=== PATIENT | male | born 1960 | race Caucasian/White ===

== ENCOUNTER 2022-04-02 18:02 | Emergency (ER) | payer BC, SELFPAY ==
[2022-04-02] VITALS (10 sets, daily range): BP systolic 128–178; BP diastolic 60–125; PULSE 70–72; RESP 22; TEMP 36.8; O2SAT 87–100; BMI 28.7
[2022-04-02] MEDS: ASPIRIN 81 MG TAB.CHEW 324 MG PO (18:08)
[2022-04-02] MEDS: 0.9 % SODIUM CHLORIDE 1000 ml 1,000 ML IV (18:10)
[2022-04-02] MEDS: MORPHINE 4 MG/ML INJ IVP (18:10)
--- NOTE | 2022-04-02 18:10 | CRLHL7_ITS ---
For Patients: As a result of the Century Cures Act, medical imaging exams and procedure reports are released immediately into your electronic medical record. You may view this report before your referring provider. If you have questions, please contact your health care provider. INDICATION: CP. TECHNIQUE: Chest 1 view. COMPARISON: None. FINDINGS: Cardiovascular and mediastinum: Heart size and vasculature are normal in caliber and appearance. Mediastinum is within normal limits. Lungs and pleural space: Lungs are clear. No sign of infiltrate or mass. No sign of pleural effusion. No pneumothorax. Small calcified granuloma left upper lobe. Bones and soft tissues: No significant findings. IMPRESSION: Unremarkable chest. Dictated by: Ayden Velasquez MD @ 04/02/2022 18:45:19 (Electronically Signed)
[2022-04-02] MEDS: NITROGLYCERIN 0.4 MG TAB.SUBL SUBLINGUAL (18:11)
[2022-04-02] MEDS: HEPARIN 5,000 UNIT/0.5 ML INJ 4000 UNIT IVP (18:19)
[2022-04-02] MEDS: HEPARIN 25,000 UNIT/500 ML BAG 20 UNIT IV (18:22)
[2022-04-02] MEDS: MORPHINE 4 MG/ML INJ 2 MG IVP (18:28)
[2022-04-02] MEDS: CLOPIDOGREL 300 MG TABLET 600 MG PO (18:30)
[2022-04-02] MEDS: LORazepam 2 MG/ML inj 0.5 MG IVP (18:30)
[2022-04-02] MEDS: fentaNYL 100 MCG/2 ML inj 50 MCG IVP (18:30)
[2022-04-02] MEDS: NITROGLYCERIN/DEXTROSE 25,000 MCG/250 ML BOTTLE 6 MCG IVPB (18:30)
[2022-04-02 18:32] LABS: Troponin, Point-of-Care* 0.03 ng/ml (0.01-0.04)
[2022-04-02 18:35] LABS: Basophils Absolute Auto 0.03 K/uL (0.00-0.30); Basophils Percent Auto 0.4 % (0.0-3.0); Eosinophils Absolute Auto 0.04 K/uL (0.00-0.50); Eosinophils Percent Auto 0.5 % (0.0-7.0); Hematocrit 43.2 % (37.0-53.0); Hemoglobin* 14.7 gm/dL (13.5-17.5); Immature Granulocytes Abs Auto 0.01 K/uL (0.00-0.30); Immature Granulocytes Pct Auto 0.1 %; Lymphocytes Absolute Auto 2.13 K/uL (0.90-2.90); Lymphocytes Percent Auto 26.3 % (20-44); Mean Corpuscular HGB Conc 34 gm/dL (32-36); Mean Corpuscular Hemoglobin 32 pg (26-34); Mean Corpuscular Volume 95 fL (80-100); Monocytes Percent Auto 8.6 % (0.0-11.0); Neutrophils Percent Auto 64.1 % (42.0-72.0); Platelet Count* 199 K/uL (140-440); RDW Coefficient of Variation % 12.2 % (11.5-15.5); Red Blood Count 4.55 m/uL (4.30-5.90); White Blood Count* 8.11 K/uL (4.50-11.00)
[2022-04-02] MEDS: ONDANSETRON 2 MG/ML inj 4 MG IVP (18:42)
--- NOTE | 2022-04-02 18:45 | ED.NURSE ---
Report given to ANW RN by DAWN Whiteside. Pt transferred to EMS cot. Report given to EMS.
[2022-04-02 18:46] LABS: Slide Review Reflex No
[2022-04-02 19:01] LABS: Albumin* 4.3 g/dL (3.3-5.0); Chloride* 105 mmol/L (96-114); Potassium* 3.5 mmol/L (3.6-5.1); Sodium* 138 mmol/L (135-149)
[2022-04-02 19:03] LABS: Creatinine* 1.1 mg/dL (0.5-1.5); Est. Creatinine Clearance* 70.97; Estimated Glomerular Filt Rate 75 ml/min
[2022-04-02 19:04] LABS: Alanine Aminotransferase* 38 U/L (4-50); Alkaline Phosphatase* 60 U/L (40-150); Aspartate Amino Transferase* 35 U/L (12-35); Bilirubin Total* 0.8 mg/dL (0.1-1.5); Blood Urea Nitrogen* 20 mg/dL (7-30); Carbon Dioxide* 23 mmol/L (20-32); Total Protein* 6.9 g/dL (6.0-8.3)
[2022-04-02 19:05] LABS: Calcium* 8.3 mg/dL (8.4-10.6); Glucose* 118 mg/dL (60-115)
[2022-04-02 19:06] LABS: Prothrombin Time 36.7 Seconds
[2022-04-02 19:07] LABS: Partial Thromboplastin Time* 39 Seconds (23-33)
[2022-04-02 19:08] LABS: C Reactive Protein* < 0.5 mg/dL (0.5-1.0)
[2022-04-02 19:14] LABS: NT Pro B Type NatriureticPept* 34 pg/mL
[2022-04-02 19:21] LABS: SARS PCR* Negative SARS-CoV-2 (Negative)
--- NOTE | 2022-04-02 19:31 | ED.GENADULT ---
HPI - General Adult General Date Seen: 04/02/22 Chief complaint: Chest Pain Stated complaint: Chest pain Time Seen by Provider: 04/02/22 18:09 Source: patient and RN notes reviewed History of Present Illness HPI narrative: Patient is a 62-year-old male who arrives after developing severe left-sided chest pain with radiation into the left arm about 20 minutes prior to arrival. He says that he was eating carrots, the carrot seemed dry and did not seem to go down quite right. Shortly thereafter, he developed this pain. He has never had pain like this. Exam was somewhat limited as the patient complained of severe pain and was limited in his answers. He denied shortness of breath, denied nausea on arrival. Had not had any vomiting. Said he took a cholesterol medication, denied history of prior heart disease. Denied tobacco use. Denied allergies to medications. Related Data Home Medications Medication Instructions Recorded Confirmed cholesterol med 04/02/22 Allergies Allergy/AdvReac Type Severity Reaction Status Date / Time No Known Drug Allergies Allergy Verified 04/02/22 18:16 Review of Systems Status of ROS: Reports: unobtainable due to medical condition (Critical illness) [facility] Social History Smoking Status: Never smoker Do you use any of these nicotine containing products: None Second hand tobacco smoke exposure: No How often do you have a drink containing alcohol: never How often do you have six or more drinks on one occasion: Never AUDIT-C Alcohol total score: 0 service: No Exam Narrative: Exam Narrative: Vital signs as noted above. Initial O2 sat recorded in the 70s and 80s, but with a very poor waveform, I do not think that was an accurate reading. In general, an alert male, hand clenched over his chest, complaining of severe pain. Head: Normocephalic, atraumatic. Eyes: Pupils are equal reactive. Extraocular movements are full. Conjunctivae are normal. ENT: Mucous membranes are moist. Neck: Supple without lymphadenopathy. Heart: Regular rate and rhythm. No murmur or rub. Lungs: Clear bilaterally. No increased work of breathing, crackles or wheezes. Abdomen: Soft and nontender. Extremities: Well perfused. No edema. No calf tenderness. Pulses intact. Neurologic: Patient is alert and oriented to person and place. Speech is fluent. Face is symmetric. Moves all extremities equally. Affect: Normal. Skin: Warm and dry. Well perfused. Const: Vital Signs, click to edit/add: Vital Signs - 24 hr 04/02/22 18:03 04/02/22 18:11 04/02/22 18:11 Temperature 98.2 F Pulse Rate Pulse Rate [Pulse Oximeter] 72 Respiratory Rate 22 Blood Pressure Blood Pressure [Le ft Upper Arm] 178/125 H Pulse Oximetry 87 L 99 Oxygen Delivery Me thod Room Air Room Air Oxygen Flow Rate 04/02/22 18:05 04/02/22 18:35 04/02/22 18:36 Temperature 98.2 F Pulse Rate 70 70 Pulse Rate [Pulse Oximeter] 72 Respiratory Rate 22 Blood Pressure 135/100 H 144/60 H Blood Pressure [Le ft Upper Arm] 178/125 H Pulse Oximetry 99 100 100 Oxygen Delivery Me thod Room Air Oxygen Flow Rate 04/02/22 18:37 04/02/22 18:15 04/02/22 18:21 Temperature Pulse Rate 72 Pulse Rate [Pulse Oximeter] Respiratory Rate Blood Pressure Blood Pressure [Le ft Upper Arm] 147/114 H 128/95 H Pulse Oximetry 99 Oxygen Delivery Me thod Nasal Cannula Oxygen Flow Rate 2 04/02/22 18:30 04/02/22 19:16 Temperature 98.2 F Pulse Rate Pulse Rate [Pulse Oximeter] 72 Respiratory Rate 22 Blood Pressure Blood Pressure [Le ft Upper Arm] 135/100 H 135/100 H Pulse Oximetry Oxygen Delivery Me thod Oxygen Flow Rate Documenting provider has reviewed patient's vital signs: yes Course Course Hospital Course: On arrival, patient had an EKG which by my review showed an acute ST elevation ND, inferolateral with ST elevation in leads 2, 3, F, , V3 through V6 with reciprocal ST depression in V1, V2 and aVL. He was immediately treated as a STEMI. Two IVs were placed. He was initially on oxygen due to low O2 saturations, but once we documented that his O2 sats were in the high 90s, oxygen was discontinued. He received aspirin 324 mg, initially 1 sublingual nitroglycerin and 4 mg of morphine. Due to ongoing severe pain, nitroglycerin drip was started. He also received an additional 2 mg of morphine, 50 mcg of fentanyl as well as 0.5 mg of Ativan. After these medications he was significantly more comfortable. He was given bolus of heparin, 4000 mg as the max dose by weight. I gave him Plavix 600 mg p.o.. He had a portable chest x-ray which by my review was negative, mediastinum appeared within normal limits. Final radiology review was likewise negative. Shortly after receiving his EKG, I made an initial call to [facility]. Patient and his had indicated that they were patient's of [facility] so that was my 1st call. Unfortunately, this delayed his care as the [facility] call center initially tried to connect me with [facility]. Once connected there, the tower excavator operator indicated that they were unable to manage STEMIs. The call center made another attempt to contact Cardiology at [facility], apparently not believing that they could not manage a STEMI, the tower excavator operator said that they did not have ICU beds appropriate to manage a STEMI after the procedure. After that, the call center requested that I fax the EKG to [facility] and then await a phone call from them. In the meantime, the patient had indicated that he would prefer to go to [facility]. Therefore, given that I was in limbo with [facility], I called [facility] instead, was immediately transfered to the tower excavator operator, and within a couple of minutes had been directed to transfer the patient to [facility]. Transport had been called after seeing the patient's initial EKG, so they were already here and ready to go. He did develop some nausea and was given Zofran just prior to departure. Labs were pending at the time of his leaving the emergency department. His last blood pressure was 140/60. Pain was well controlled. Consultations Consultation #1: [facility] STEMI line Time: 16:15 Consultation #2: [facility] STEMI line Time: 16:30 Vital Signs Vital signs: Initial Vital Signs Temperature 98.2 F 04/02/22 18:03 Temperature Source Temporal Artery Scan 04/02/22 18:03 Pulse Rate 72 04/02/22 18:03 Respiratory Rate 22 04/02/22 18:03 Blood Pressure 178/125 H 04/02/22 18:03 Blood Pressure Mean 142 04/02/22 18:03 Blood Pressure Position Sitting 04/02/22 18:03 Pulse Oximetry 87 L 04/02/22 18:03 Oxygen Delivery Method 04/02/22 18:03 Vital Signs Temperature 98.2 F 04/02/22 18:03 Pulse Rate 72 04/02/22 18:03 Respiratory Rate 22 04/02/22 18:03 Blood Pressure 178/125 H 04/02/22 18:03 Pulse Oximetry 87 L 04/02/22 18:03 Oxygen Delivery Method 04/02/22 18:03 Temperature 98.2 F 04/02/22 19:16 Pulse Rate 72 04/02/22 19:16 Respiratory Rate 22 04/02/22 19:16 Blood Pressure 135/100 H 04/02/22 19:16 Pulse Oximetry 99 04/02/22 18:37 Oxygen Delivery Method 04/02/22 18:15 Oxygen Flow Rate 2 04/02/22 18:15 Medical Decision Making Lab Data Labs: Lab Results 04/02/22 04/02/22 04/02/22 Range/Units 18:12 18:13 18:15 WBC 8.11 (4.50-11.00) K/uL RBC 4.55 (4.30-5.90) m/uL Hgb 14.7 (13.5-17.5) gm/dL Hct 43.2 (37.0-53.0) % MCV 95 (80-100) fL MCH 32 (26-34) pg MCHC 34 (32-36) gm/dL RDW Coeff of Ioana 12.2 (11.5-15.5) % Plt Count 199 (140-440) K/uL Neut % (Auto) 64.1 (42.0-72.0) % Lymph % (Auto) 26.3 (20-44) % Barnwell % (Auto) 8.6 (0.0-11.0) % Eos % (Auto) 0.5 (0.0-7.0) % Baso % (Auto) 0.4 (0.0-3.0) % Neut # (Auto) 5.20 (1.7-7.0) K/uL Lymph # (Auto) 2.13 (0.90-2.90) K/uL Barnwell # (Auto) 0.70 (0.00-0.90) K/UL Eos # (Auto) 0.04 (0.00-0.50) K/uL Baso # (Auto) 0.03 (0.00-0.30) K/uL INR APTT Sodium (135-149) mmol/L Potassium (3.6-5.1) mmol/L Chloride (96-114) mmol/L Carbon Dioxide (20-32) mmol/L BUN (7-30) mg/dL Creatinine (0.5-1.5) mg/dL Estimated Creat Clear Estimated GFR ml/min Glucose (60-115) mg/dL Calcium (8.4-10.6) mg/dL Total Bilirubin (0.1-1.5) mg/dL Direct Bilirubin (0.0-0.5) mg/dL AST (12-35) U/L ALT (4-50) U/L Alkaline Phosphatase (40-150) U/L C-Reactive Protein (0.5-1.0) mg/dL NT-Pro-B Natriuret Pep pg/mL Total Protein (6.0-8.3) g/dL Albumin (3.3-5.0) g/dL SARS-CoV-2 (PCR) Negative SARS-CoV-2 (Negative) POC Troponin I 0.03 (0.01-0.04) ng/ml 04/02/22 04/02/22 04/02/22 Range/Units 18:15 18:15 18:15 WBC (4.50-11.00) K/uL RBC (4.30-5.90) m/uL Hgb (13.5-17.5) gm/dL Hct (37.0-53.0) % MCV (80-100) fL MCH (26-34) pg MCHC (32-36) gm/dL RDW Coeff of Ioana (11.5-15.5) % Plt Count (140-440) K/uL Neut % (Auto) (42.0-72.0) % Lymph % (Auto) (20-44) % Barnwell % (Auto) (0.0-11.0) % Eos % (Auto) (0.0-7.0) % Baso % (Auto) (0.0-3.0) % Neut # (Auto) (1.7-7.0) K/uL Lymph # (Auto) (0.90-2.90) K/uL Barnwell # (Auto) (0.00-0.90) K/UL Eos # (Auto) (0.00-0.50) K/uL Baso # (Auto) (0.00-0.30) K/uL INR Cancelled APTT Cancelled Sodium 138 (135-149) mmol/L Potassium 3.5 L (3.6-5.1) mmol/L Chloride 105 (96-114) mmol/L Carbon Dioxide 23 (20-32) mmol/L BUN 20 (7-30) mg/dL Creatinine 1.1 (0.5-1.5) mg/dL Estimated Creat Clear 70.97 Estimated GFR 75 ml/min Glucose 118 H (60-115) mg/dL Calcium 8.3 L (8.4-10.6) mg/dL Total Bilirubin 0.8 (0.1-1.5) mg/dL Direct Bilirubin 0.0 (0.0-0.5) mg/dL AST 35 (12-35) U/L ALT 38 (4-50) U/L Alkaline Phosphatase 60 (40-150) U/L C-Reactive Protein < 0.5 L (0.5-1.0) mg/dL NT-Pro-B Natriuret Pep 34 pg/mL Total Protein 6.9 (6.0-8.3) g/dL Albumin 4.3 (3.3-5.0) g/dL SARS-CoV-2 (PCR) (Negative) POC Troponin I (0.01-0.04) ng/ml 04/02/22 Range/Units 18:23 WBC (4.50-11.00) K/uL RBC (4.30-5.90) m/uL Hgb (13.5-17.5) gm/dL Hct (37.0-53.0) % MCV (80-100) fL MCH (26-34) pg MCHC (32-36) gm/dL RDW Coeff of Ioana (11.5-15.5) % Plt Count (140-440) K/uL Neut % (Auto) (42.0-72.0) % Lymph % (Auto) (20-44) % Barnwell % (Auto) (0.0-11.0) % Eos % (Auto) (0.0-7.0) % Baso % (Auto) (0.0-3.0) % Neut # (Auto) (1.7-7.0) K/uL Lymph # (Auto) (0.90-2.90) K/uL Barnwell # (Auto) (0.00-0.90) K/UL Eos # (Auto) (0.00-0.50) K/uL Baso # (Auto) (0.00-0.30) K/uL INR 3.50 H APTT 39 H Sodium (135-149) mmol/L Potassium (3.6-5.1) mmol/L Chloride (96-114) mmol/L Carbon Dioxide (20-32) mmol/L BUN (7-30) mg/dL Creatinine (0.5-1.5) mg/dL Estimated Creat Clear Estimated GFR ml/min Glucose (60-115) mg/dL Calcium (8.4-10.6) mg/dL Total Bilirubin (0.1-1.5) mg/dL Direct Bilirubin (0.0-0.5) mg/dL AST (12-35) U/L ALT (4-50) U/L Alkaline Phosphatase (40-150) U/L C-Reactive Protein (0.5-1.0) mg/dL NT-Pro-B Natriuret Pep pg/mL Total Protein (6.0-8.3) g/dL Albumin (3.3-5.0) g/dL SARS-CoV-2 (PCR) (Negative) POC Troponin I (0.01-0.04) ng/ml Critical Care Time Critical Care Time Total Critical Care Time in Minutes: 30 Discharge Plan Discharge Prescriptions: No Action cholesterol med Follow Up/Referrals: Provider,Not a Local [Referring] -
== END 2022-04-02 19:18 | disposition home or self-care (01) ==
PROVIDERS: Emergency Provider Emergency Medicine; PCP Physician Assistant
DX: I21.3 ST elevation (STEMI) myocardial infarction of unspecified site (principal)
CPT/HCPCS: 36415; 71045; 80048; 80076; 83880; 84484; 85025; 85027; 85610; 85730; 86140; 87635; 93005; 94761; 96374; 96375; 99285; 99291; A9270; J1644; J2060; J2270; J2405; J3010; J7030

== ENCOUNTER 2022-04-02 18:15 | Outpatient (CLI) | payer BC, SELFPAY | END 2022-04-02 18:16 | disposition home or self-care (01) | LOC: AMB 04-14 14:35 | PROVIDERS: PCP Physician Assistant; Visit Provider Emergency Medicine | DX: I21.3 ST elevation (STEMI) myocardial infarction of unspecified site (principal) | CPT/HCPCS: A0425; A0426 ==